=== PATIENT | male | born 1980 | race Caucasian/White ===

== ENCOUNTER 2019-02-27 12:54 | Emergency (ER) | payer OTHER ==
[~2019-02-27] VITALS: Ht 172.7 cm; Wt 68.0 kg
== END 2019-02-27 17:01 | disposition home or self-care (01) ==
LOC: ER 12:54
DX: K08.89 Other specified disorders of teeth and supporting structures (principal)

== ENCOUNTER 2019-05-07 12:45 | Emergency (ER) | payer OTHER ==
[~2019-05-07] VITALS: Ht 172.7 cm; Wt 65.3 kg
[2019-05-07] MEDS ORDERED: ALEVE220 MG (12:50)
== END 2019-05-07 14:11 | disposition home or self-care (01) ==
LOC: ER 12:45
DX: K04.7 Periapical abscess without sinus (principal); Z98.818 Other dental procedure status